=== PATIENT | male | born 1945 | race Caucasian/White ===

== ENCOUNTER → 2016-04-29 | Outpatient (CLI) | payer OTHER ==
--- NOTE | 2016-04-29 12:07 | DX ---
Cervical Spine, Five views including lateral flexion and extension History: Pain. Right-sided hand numbness, increasing Findings: Alignment is anatomic. There is moderate narrowing of the C5-C6 and C6-C7 disk spaces. Ther e are small posterior osteophytes between C4 and C6. There is ossification of the anterior longitudin al ligament at C4-C5 and C5-C6. There are prominent anterior bridging osteophytes between C5 and C7.. There is no prevertebral soft tissue swelling. There are nuchal ligament ossifications posterior to the C5 and C7 spinous processes. Overall mineralization is normal. There is is prominent right-sided degenerative facet disease between C3 and C5. There is limited range of motion in flexion with mild spondylolisthesis developing at C4-C5, that is likely related to lack of motion between C5 and C7. There is limited cervical range of motion in exte nsion without evidence of instability. Impression: Multilevel degenerative change described above. No instability identified.. If there is concern for instability, then consider lateral cervical flexion extension views.
--- NOTE | 2016-04-29 13:45 | MR ---
MRI of the Cervical Spine (Without Contrast), 10:57 AM History: Neck pain, right-sided hand and arm numbness Comparison: Plain films done today Technique: Sagittal T1, FSE T2 and STIR images. Axial FSE T2 and GRE images. Findings: The craniocervical junction is normal. Cervical alignment is anatomic, except for mild retr olisthesis at C5-C6 and C6-C7 and mild spondylolisthesis at C7-T1 and T2-T3. The cervical neural can al is congenitally normal in size. Vertebral bodies maintain normal bone marrow signal. Disk spaces maintain normal height except for mild narrowing of the disks between C5 and C7. There is a destructi ve process, with soft tissue or erosive mass associated with the left C3-C4 facet joints. There is a small amount of fluid in the anterior C3-C4 disk space without disruption of the anterior longitudina l ligament or prevertebral soft tissue swelling. Also, the cortical endplates of C3-C4 are intact bot h on the MRI as well as the cervical spine x-ray performed earlier today. C2-C3: Normal posterior disk margins are normal. Neural foramen are widely patent. There is some mild degenerative change of the left facet joint. C3-C4: As noted above there is some sort of distractive process associated with the left facet joint. There is a mild central disk bulge or protrusion associated with a mean small eccentric to the left of midline annular tear. Both foramen remain widely patent. C4-C5: There is a moderate right lateral disk bulge or protrusion that causes moderate encroachment o n the lateral recess and medial foramen. The left foramen is widely patent. The central neural canal is moderately stenotic. CSF remains in front of and behind the cord at this level. C5-C6: There is a diffuse moderate disk bulge with bilateral uncovertebral joint spurs. There is power re bilateral foraminal stenosis secondary to those spurs. The central neural canal is moderately narr owed secondary to the diffuse disk bulge. In the midline AP diameter of the thecal sac is approximate ly 9mm. Only a small amount of CSF remains in front of and behind the cord at this level. C6-C7: There is a diffuse mild disk bulge. Adequate CSF is present around the cord. There is severe r ight and moderate left foraminal encroachment secondary to uncovertebral joint spurring. C7-T1: There is a mild spondylolisthesis. Abundant CSF surrounds the cord. Both foramen are widely pa tent. Impression: 1. Destructive process left C3-C4 facets and facet joint. This may represent a manifestat ion of facet arthropathy. Recommend noncontrast CT for further evaluation. 2. Multilevel cervical degenerative changes. The worst central canal stenosis is at C5-C6 and the wor st right foraminal stenoses are between C4 and C7. Results called to Porter Munguia at 1:41 PM
== END ==
LOC: FIMAGING 10:36
PROVIDERS: ATTEND Physician Assistant Surgical
DX: M50.320 Other cervical disc degeneration, mid-cervical region, unspecified level (principal); R20.2 Paresthesia of skin; M54.2 Cervicalgia

== ENCOUNTER → 2016-05-03 | Outpatient (CLI) | payer OTHER | LOC: FIMAGING 08:59 | PROVIDERS: ATTEND Physician Assistant Surgical | DX: M50.321 Other cervical disc degeneration at C4-C5 level (principal); M50.322 Other cervical disc degeneration at C5-C6 level; M46.92 Unspecified inflammatory spondylopathy, cervical region ==

== ENCOUNTER → 2016-12-20 | Outpatient (CLI) | payer OTHER | LOC: BMCIMAGING 15:16 | PROVIDERS: ATTEND Internal Medicine Rheumatology | DX: M76.891 Other specified enthesopathies of right lower limb, excluding foot (principal); M76.892 Other specified enthesopathies of left lower limb, excluding foot; M17.0 Bilateral primary osteoarthritis of knee ==

== ENCOUNTER 2017-01-02 11:08 | Day surgery (SDC) | payer OTHER ==
--- NOTE | 2017-01-01 17:30 | GHP ---
[f rep st] PREOP HISTORY AND PHYSICAL DATE OF ADMISSION: 01/02/2017 CHIEF COMPLAINT: Right forefoot pain. HISTORY OF PRESENT ILLNESS: The patient is a 71-year-old with a history of progressive forefoot pain and lesser toe deformity. He is having progressive limitation in symptoms secondary to his pain. PAST MEDICAL HISTORY: Positive for arthritis and gout. PAST SURGICAL HISTORY: Positive for shoulder surgery, hip surgery, carpal tunnel release, nephrectom y, quadriceps tendon and Medicine are postop star. SOCIAL HISTORY: Negative for tobacco use. MEDICATIONS: Include allopurinol, hydrochloroquine, ketoconazole shampoo, prednisone, tamsulosin. ALLERGIES: Vicodin, which gives him a rash. PHYSICAL EXAMINATION: GENERAL: He is alert and oriented x3, in no acute distress. HEENT: Head is normocephalic. Pupils equal, round, and reactive to light. Extraocular eye movements intact. NECK: Supple. No JVD or lymphadenopathy. CHEST: Clear to auscultation. HEART: Regular rate and rhyth m. No murmurs or gallops. ABDOMEN: Soft, nontender, nondistended. No organomegaly. GENITAL, RECT AL, AND BREAST: Exams deferred. EXTREMITIES: Exam reveals pain with diminished motion at his 1st M TP joint. He has approximately 10 degrees gastroc equinus. There are extensor deformities of his le sser toes. ASSESSMENT: 1. Right hallux rigidus. 2. Right extensor digitorum communis contracture. 3. Gastroc contracture. PLAN: He is scheduled under a gastroc recession, implant hemiarthroplasty of his 1st MTP joint, and extensor digitorum lengthening. /[id number]/MODL
[2017-01-02] MEDS ORDERED: BUPIVACAINE 0.5% 30 ML SDV ONE (11:13)
[2017-01-02] MEDS ORDERED: LR 1,000 ML IV ONE (11:45)
[2017-01-02] MEDS ORDERED: LIDOCAINE 1% 2 ML INJ ID PRN (11:45)
--- NOTE | 2017-01-02 12:04 | PDANEPAE ---
ANE Past Medical History - Cardiovascular History Hx Hypertension: No Hx Arrhythmias: No Hx Chest Pain: No Hx Coronary Artery / Peripheral Vascular Disease: No Hx CHF / Valvular Disease: No Hx Palpitations: No - Pulmonary History Hx COPD: No Hx Asthma/Reactive Airway Disease: No Hx Recent Upper Respiratory Infection: No Hx Oxygen in Use at Home: No Hx Sleep Apnea: No Sleep Apnea Screening Result - Last Documented: Negative - Neurologic History Hx Cerebrovascular Accident: No Hx Seizures: No Hx Dementia: No - Endocrine History Hx Diabetes: No - Renal History Hx Renal Disorders: Yes Renal History Comment: NEPHRECTOMY R - Liver History Hx Hepatic Disorders: No - Neurological & Psychiatric Hx Hx Neurological and Psychiatric Disorders: No - Cancer History Hx Cancer: No - Congenital Disorder History Hx Congenital Disorders: No - GI History Hx Gastrointestinal Disorders: No - Other Health History Other Health History: POSS ECZEMA OR SEBORHEA. 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 NEPHRECTOMY R. NASAL RECONSTRUCTION. L SHOULDER. ALDEN QUADRICEPS. L RTC REPAIR. R HIP RESURFACING. R RTC REPAIR. BICEPS TENDON REPAIR. CYST L THUMB. R KNEE SCOPE. LAMINOTOMY. L TRIGGER THUMB. R CARPAL TUNNEL. L CARPAL TUNNEL. TINEX PROCEDURE SCAR TISSUE R HIP ANE Review of Systems Review of Systems: - Exercise capacity METS (RN): 4 METS ANE Patient History - Allergies Allergies/Adverse Reactions: hydrocodone [From Vicodin] Allergy (Verified 12/29/16 14:41) - Home Medications Home Medications: Allopurinol 12/29/16 [Last Taken 01/01/17] Herbals/Supplements -Info Only 12/29/16 [Last Taken 12/26/16] - NPO status NPO Since - Liquids (Date): 01/01/17 NPO Since - Liquids (Time): 00:01 NPO Since - Solids (Date): 01/01/17 NPO Since - Solids (Time): 23:59 - Smoking Hx Smoking Status: Never smoked - Family Anes Hx Family Hx Anesthesia Complications: NEG ANE Labs/Vital Signs - Vital Signs Blood Pressure: 156/82 Heart Rate: 58 Respiratory Rate: 16 O2 Sat (%): 95 Height: 177.8 cm Weight: 74.843 kg ANE Physical Exam - Airway Mallampati Score: Class 2 - ASA Status ASA Status: II ANE Anesthesia Plan Anesthesia Plan: GA w LMA
[2017-01-02] MEDS ORDERED: ceFAZolin 2 GM/DEXTROSE 100 ML IV ONE (12:09)
--- NOTE | 2017-01-02 12:12 | POSTOPPROG ---
Post Op Note Date of Operation: 01/02/17 Surgeon: Sly Dumas Anesthesia: GET(General Endotracheal) Pre-op Diagnosis: Right Gastroc contracture, hallux rigidus, EDC contracture Post-op Diagnosis: Same Procedure: R gastroc recession, 1st MTP implant arthroplasty (Cartiva), EDC transfer, Inf/Abcess present in the surg proc area at time of surgery?: No EBL: Minimal
[2017-01-02] MEDS ORDERED: CEFAZOLIN 1 GM/DEXTROSE/50 ML BAG IV ONE (12:19)
[2017-01-02] MEDS ORDERED: MIDAZOLAM 2 MG/2 ML VIAL ONE ×2 (12:19→12:24)
[2017-01-02] MEDS ORDERED: PROPOFOL 200 MG/20 ML VIAL ONE (12:25)
[2017-01-02] MEDS ORDERED: fentaNYL 100 MCG/2 ML INJ ONE (12:25)
[2017-01-02] MEDS ORDERED: METOCLOPRAMIDE 10 MG/2 ML VIAL ONE (12:26)
[2017-01-02] MEDS ORDERED: ONDANSETRON 4 MG/2 ML VIAL ONE (12:26)
[2017-01-02] MEDS ORDERED: LIDOCAINE 2% JELLY 5 ML TUBE ONE (12:26)
[2017-01-02] MEDS ORDERED: ONDANSETRON 4 MG/2 ML VIAL IVP PRN (13:46)
[2017-01-02] MEDS ORDERED: PROMETHAZINE HCL 25 MG/ML INJ IVP PRN (13:46)
[2017-01-02] MEDS ORDERED: fentaNYL 100 MCG/2 ML INJ IVP PRN (13:46)
[2017-01-02] MEDS ORDERED: NALOXONE HCL 0.4 MG/ML INJ IVP PRN (13:46)
[2017-01-02] MEDS ORDERED: MEPERIDINE 25 MG/ML SYR IVP PRN (13:46)
[2017-01-02] MEDS ORDERED: LR 500 ML IV PRN (13:46)
--- NOTE | 2017-01-02 13:47 | POSTANESTH ---
Post Anesthetic Evaluation Cardiovascular Status: Normal, Stable Respiratory Status: Normal, Stable Level of Consciousness/Mental Status: Can Participate in Eval Pain Control: Adequate, Prn Tx Ordered Nausea/Vomiting Control: Adequate, Prn Tx Ordered Complications Possibly Related to Anesthesia: None Noted
[2017-01-02 13:48] VITALS: PULSE 68
[2017-01-02 13:58] VITALS: TEMP 97.2
[2017-01-02 15:27] VITALS: RESP 16
[2017-01-02 15:59] VITALS: BP 129/86; O2SAT 92
--- NOTE | 2017-01-03 00:12 | GOP ---
[f rep st] OPERATIVE REPORT DATE OF OPERATION: 01/02/2017 SURGEON: Sly Dumas MD ANESTHESIA: General. PREOPERATIVE DIAGNOSIS: 1. Right hallux rigidus. 2. Right 2nd, 3rd, 4th, and 5th toe metatarsophalangeal extension contractures. 3. Right gastrocnemius contracture. POSTOPERATIVE DIAGNOSIS: 1. Right hallux rigidus. 2. Right 2nd, 3rd, 4th, and 5th toe metatarsophalangeal extension contractures. 3. Right gastrocnemius contracture. PROCEDURE PERFORMED: 1. Right 1st metatarsophalangeal cheilectomy and debridement. 2. Right 1st metatarsal implant hemiarthroplasty (Cartiva). 3. Right 2nd, 3rd, 4th, and 5th toe metatarsophalangeal capsulotomy. 4. Right 2nd 3rd and 4th toe extensor digitorum longus to extensor digitorum brevis transfer. 5. Right gastrocnemius recession. 6. Intraoperative use of fluoroscopy. FINDINGS: ESTIMATED BLOOD LOSS: Minimal. INDICATIONS: Patient is a 71-year-old, history of progressive forefoot pain and deformity. Clinical ly and radiographically he is noted to have extension contractures of his lesser toes at the MTP join ts with distal migration of his plantar forefoot fat pad, as well as hallux rigidus. As his pain and functional limitations were persistent limiting his activities, he was interested in pursuing operat vero treatment. From an operative standpoint, an implant hemiarthroplasty and correction of his lesse r toe deformity was recommended. The patient acknowledged he understood the potential risks includin g, but not limited to bleeding, infection, neurovascular damage, loss of limb or limb function, recur rence of deformity, implant failure, pain or functional limitations despite operative treatment, and anesthetic risks. He acknowledged he understood the potential risks, planned procedure, and postoper ative plan well, and had all questions answered prior to surgery. He gave his consent for the operat vero procedure. DESCRIPTION OF PROCEDURE: Patient was brought into the operating room after IV antibiotics were admi nistered. He was placed in the supine position where general anesthetic was administered. Tournique t was placed on his right thigh, bump underneath his right hip and shoulder, and his right lower extr emity was prepped and draped in standard sterile fashion. After marking the incisions and Ponce wrap e xsanguination, tourniquet was inflated to 250. Attention was initially directed toward the gastroc recession. A longitudinal incision was made andreas g the posterior medial aspect of the lower leg at the mid aspect of the gastroc musculature. Skin an d subcutaneous tissue were sharply incised. Sharp dissection was carried through the superficial pos terior compartment fascia in line with the skin incision. The interval between the gastroc and soleu s was bluntly dissected. Utilizing a speculum for retraction, the anterior tendon and the gastroc we re transversely incised allowing for adequate dorsiflexion with the knee extended. Subcutaneous tiss ue was closed with 3-0 Vicryl suture in interrupted fashion. Skin closed with 4-0 nylon interrupted sutures. Attention was then directed toward the 1st MTP joint. A longitudinal incision was made along the tawanda madi aspect of the 1st MTP joint. Sharp dissection was carried medial to the EHL tendon, down through the joint capsule. The capsule was reflected medially and laterally. Utilizing a saw and rongeur, bony prominences on the dorsal, medial, and lateral aspects of the metatarsal head and proximal phala nx were removed. The guidepin from the Cartiva implant was placed in the central aspect of the metat arsal head. Position of the guidepin was confirmed fluoroscopically. Intraoperative templating reve aled a 10 mm implant to be appropriate. A 10 mm reamer was utilized to create a trough in the metata rsal head. A 10 mm Cartiva implant was then impacted into place, being approximately 2 mm proud. Th e joint was taken through a range of motion and felt to have excellent motion without any dorsal impi ngement. A Java was used to free up the plantar capsule slightly. The sheath overlying the EHL was closed with 2-0 Vicryl suture in interrupted fashion. Subcutaneous tissue closed with 3-0 Vicryl fish ture in interrupted fashion. Skin closed with 4-0 nylon interrupted sutures. Attention was then directed toward the lesser toes. A longitudinal incision was made along the dorsa l aspect of the midfoot. Skin and subcutaneous tissue were sharply incised. The sheath overlying th e long extensor tendons was open. For the 2nd, 3rd, and 4th toes, the long extensor tendon was sutur ed into the short extensor and then transected proximal to this anastomosis. The anastomosis was per formed with 3-0 PDS suture. A small longitudinal incision was made at the MTP joint of each of these toes as well as 5th toe. Adjacent to the long extensor tendon, the dorsal aspect of the MTP capsule was released. This enabled the lesser toes to maintain a favorable position and become "reduced" at the MTP joints. Attention was directed toward closure. Subcutaneous tissue was closed with 3-0 Vicryl suture in inte rrupted fashion. Skin was closed with 4-0 nylon interrupted sutures. 0.5% Marcaine without epinephr ine was injected in the wound sites. The wounds were dressed with sterile Adaptic, 4 x 4, Kerlix and an Ponce wrap. The patient was placed in a fracture boot and taken to the recovery room extubated, in stable condition postoperatively. All sponge, needle, and instrument counts were reported as being correct. DRAINS: None. COMPLICATIONS: None. PLAN: The patient will be discharged home weightbearing as tolerated in his fracture boot. /[id number]/MODL
== END 2017-01-02 14:59 | disposition home or self-care (01) ==
LOC: FSGY 11:08
PROVIDERS: ATTEND Orthopaedic Surgery Foot and Ankle Surgery
PROC: 0LXN0ZZ Transfer Right Lower Leg Tendon, Open Approach (ICD-10-PCS; principal; 2017-01-02 12:30)
PROC: 0KNS0ZZ Release Right Lower Leg Muscle, Open Approach (ICD-10-PCS; principal; 2017-01-02 12:30)
PROC: 0SRM0JZ Replacement of Right Metatarsal-Phalangeal Joint with Synthetic Substitute, Open Approach (ICD-10-PCS; principal; 2017-01-02 12:30)
PROC: 0SNM0ZZ Release Right Metatarsal-Phalangeal Joint, Open Approach (ICD-10-PCS; principal; 2017-01-02 12:30)
DX: M20.21 Hallux rigidus, right foot (principal); M62.461 Contracture of muscle, right lower leg; M24.571 Contracture, right ankle; M79.671 Pain in right foot; M10.9 Gout, unspecified
CPT/HCPCS: J0690; J2250; J2405; J2704; J2765; J3010